=== PATIENT | female | born 2000 | race Two or more races ===

== ENCOUNTER 2021-12-10 12:09 | Emergency (ER) | payer BC ==
[~2021-12-10] VITALS: Ht 170.2 cm; Wt 76.7 kg
[2021-12-10] MEDS ORDERED: IOHEXOL-300 100 ML VIAL IV ONE (13:16)
[2021-12-10 13:38] LABS: BASOPHILS % (AUTO) 0.3 % (0.0-2.0); EOSINOPHILS % (AUTO) 0.2 % (0.0-6.0); HEMATOCRIT 34 % (33-45); HEMOGLOBIN 10.8 g/dL (11.5-14.8); LYMPHOCYTES # (AUTO) 2.2 K/uL (0.8-4.8); MEAN CORPUSCULAR HGB CONC 31 g/dl (31.0-36.0); MEAN CORPUSCULAR VOLUME 79 fL (82-100); MONOCYTES # (AUTO) 0.9 K/uL (0.1-1.30); MONOCYTES % (AUTO) 8.1 % (2.0-12.0); NEUTROPHILS # (AUTO) 8.4 K/uL (1.8-8.9); NEUTROPHILS % (AUTO) 72.4 % (43.0-81.0); PLATELET COUNT (AUTO) 310 K/uL (150-450); RED BLOOD CELL COUNT(AUTO) 4.39 MIL/uL (4.0-5.2); WHITE BLOOD COUNT (AUTO) 11.6 K/uL (4.3-11.0)
--- NOTE | 2021-12-10 13:43 | NUR ---
PT TAKEN TO CT VIA GOORNEY.
[2021-12-10 13:50] LABS: CREATININE 0.7 mg/dL (0.6-1.3); POTASSIUM 3.7 mmol/L (3.5-5.1)
[2021-12-10 13:56] LABS: ALBUMIN 3.5 g/dL (3.4-5.0); BILIRUBIN,DIRECT 0.1 mg/dL (0.0-0.2); BILIRUBIN,TOTAL 0.5 mg/dL (0.2-1.0); TOTAL PROTEIN, SERUM 7.9 g/dL (6.4-8.2)
[2021-12-10] MEDS ORDERED: CYCL10TA9 PO (14:43)
[2021-12-10] MEDS ORDERED: IBUP-1955 PO (14:43)
[2021-12-10] MEDS ORDERED: TDAP [DIPH/PERTUSSIS/TET] 0.5 ML VIAL IM ONE ×2 (14:45→15:00)
[2021-12-10] MEDS ORDERED: IBUPROFEN 600 MG TABLET ONE (14:48)
[2021-12-10] MEDS ORDERED: IBUPROFEN 600 MG TABLET PO ONE (15:00)
[2021-12-10 15:17] VITALS: BP 135/82
== END 2021-12-10 15:18 | disposition home or self-care (01) ==
LOC: ER 12:16
DX: S20.219A Contusion of unspecified front wall of thorax, initial encounter (principal); S10.93XA Contusion of unspecified part of neck, initial encounter; R10.11 Right upper quadrant pain; F90.9 Attention-deficit hyperactivity disorder, unspecified type; Z79.899 Other long term (current) drug therapy; V49.49XA Driver injured in collision with other motor vehicles in traffic accident, initial encounter; Y93.89 Activity, other specified; Y92.413 State road as the place of occurrence of the external cause; Y99.8 Other external cause status
CPT/HCPCS: 99285; 71260; 71045; 90471; 90715; 70491; 74177; 85025; 80048; 83690; 80076; 36415; 85730; Q9967

== ENCOUNTER 2022-03-02 14:27 | Emergency (ER) | payer BC ==
[~2022-03-02] VITALS: Ht 172.7 cm; Wt 77.1 kg
[~2022-03-02 14:27] MED LIST: CYCL10TA9 PO; IBUP-1955 PO
[2022-03-02 14:43] VITALS: BP 122/80
--- NOTE | 2022-03-02 14:51 | NUR ---
LEFT FOOT/ANKLE PAIN,INJURED WHILE ROCK CLIMBING 3 DAYS AGO
--- NOTE | 2022-03-02 16:15 | NUR ---
AT BEDSIDE FOR EVAL
[2022-03-02] MEDS ORDERED: IBUPROFEN 600 MG TABLET ONE (16:29)
[2022-03-02] MEDS ORDERED: IBUPROFEN 600 MG TABLET PO ONE (16:30)
[2022-03-02] MEDS ORDERED: IBUP-1955 PO (17:05)
== END 2022-03-02 17:32 | disposition home or self-care (01) ==
LOC: ER 14:28
DX: S92.335A Nondisplaced fracture of third metatarsal bone, left foot, initial encounter for closed fracture (principal); S93.402A Sprain of unspecified ligament of left ankle, initial encounter; Z79.899 Other long term (current) drug therapy; W17.89XA Other fall from one level to another, initial encounter; Y93.31 Activity, mountain climbing, rock climbing and wall climbing; Y92.89 Other specified places as the place of occurrence of the external cause; Y99.8 Other external cause status
CPT/HCPCS: 73600-TC; 73630-TC